=== PATIENT | female | born 1990 | race Caucasian/White ===

== ENCOUNTER 2019-02-20 11:46 | Outpatient (CLI) | payer OTHER ==
[~2019-02-20] VITALS: Ht 170.2 cm; Wt 82.3 kg
[2019-02-20 11:52] VITALS: BP 130/81; PULSE 82; TEMP 98.5
[2019-02-20] MEDS ORDERED: CALCIUM CARBON650 M2 (11:56)
[2019-02-20] MEDS ORDERED: OMEGA-3 1000 MG1 CAP (11:56)
[2019-02-20] MEDS ORDERED: VITAMIN B-625 MG (11:57)
[2019-02-20] MEDS ORDERED: PRENATAL MVI (11:57)
--- NOTE | 2019-02-20 12:05 | NUR ---
G1 at 40.4 weeks gestation to LDR3 with c/o her water breaking. She denies vaginal bleeding and reports good movement. Patient changed into gown and wedged left in bed. EFMs explained and applied. FHR 120 bpm and reactive. Irregular CTX per toco and patient reports. VSS. Amniotrace swab to vagina remains yellow. SVE 1/75/-2 with no fluid noted with exam. Plan of care reviewed with patient and spouse.
[2019-02-21] MEDS ORDERED: VITAMIND3 5000 PO (23:06)
== END 2019-02-20 12:35 | disposition home or self-care (01) ==
LOC: LDRO 11:46
DX: O42.92 Full-term premature rupture of membranes, unspecified as to length of time between rupture and onset of labor (principal); Z3A.40 40 weeks gestation of pregnancy

== ENCOUNTER 2019-02-21 22:39 | Inpatient (IN) | payer OTHER ==
[~2019-02-21] VITALS: Ht 170.2 cm; Wt 83.2 kg
[~2019-02-21 22:39] MED LIST: CALCIUM CARBON650 M2; OMEGA-3 1000 MG1 CAP; PRENATAL MVI; VITAMIN B-625 MG
--- NOTE | 2019-02-21 22:45 | NUR ---
Pt wheeled to LDR 5 with spouse. Clean gown on. EFM and TOCO expalined and applied. Pt states she has been having contractions every 4-5 minutes apart, lasting one minute for about an hour now. Pt denies LOF or vaginal bleeding. Reports good movement. SVE 3-4/80/-1, very posterior. Small amount of bloody show noted on exam glove. Vital signs and assessment completed. Plan of care explained to pt and who verbalize understanding. Call light within reach.
[2019-02-21 23:00] VITALS: BP 147/88; PULSE 74; TEMP 98.3
[2019-02-21] MEDS ORDERED: VITAMIND3 5000 PO (23:06)
[2019-02-21 23:30] VITALS: BP 141/90; PULSE 93
[2019-02-22] VITALS (17 sets, daily range): BP systolic 90–147; BP diastolic 40–92; PULSE 68–113; TEMP 97.6–98.7
--- NOTE | 2019-02-22 00:08 | NUR ---
SVE 5/90/-1 with more bloody show noted to exam glove. Plan of care explained to pt and who verbalize understanding. 0015: updated on pt and her status. See physican notification. 0020: Pt and updated on new orders and pt getting admitted. Consents signed. Hot blankets to arms for IV start. 0059: Pt large amount of emesis. Pt off monitors to clean up and luna gown. 0113: IV started and labs obtained via IV site. LR bolus infusing. 0137: Pt called out stating she was feeling more rectal pressure. Upon exam this RN noticed large amount of meconium fluid to pt's pad. Pt unaware of when water broke. SVE 8-9/100/0 with thick meconium noted. Pericare provided and pads changed. 0201: SVE C/+1. Education on pushing with contractions explained to pt and practice push completed with this RN. Pt moves vertex well. 0203: requested at hospital. Seee physican notifcation. 0222: at bedside for delivery. Pt assisted into footplates and begina pushing with provider. 0225: Spontaneous vaginal delivery of viable female infant by . to mothers chest where mouth and nares suctioned by nursery RN. Cord clamped X2 and cut by FOB. Care of assumed by DEAN Moore. 0231: Manually extracted placenta delivered by at this time. Pitocin started at 333mus/hr per protocol. Fundal message completed with uterine atony noted. 0235: IM methergine administered in left upper thigh. Lidocaine administered and second degree and right labial laceration repaired by . Pericare provided, pads changed and ice pack applied. Pt repositioned in bed. Plan of care and safety precautions explained to pt and who verbalize understanding. Call light within reach. See doctor dications.
[2019-02-22 02:03] LABS: BASO % 0.2 % (0.0-2.0); EOS % 0.1 % (0-4.0); GRAN # 10.6 (1.4-6.5); GRAN % 83.2 % (42.2-75.2); HEMATOCRIT 37.8 % (37.0-47.0); HEMOGLOBIN 13.2 g/dl (12.5-16.0); LYMPH # 1.5 (1.2-3.4); LYMPH % 11.7 % (20.0-51.0); MEAN CELL VOLUME 90 fl (80.0-100.0); MEAN CORPUSCULAR HEMOGLOBIN 32 pg (27.0-31.0); MEAN CORPUSCULAR HGB CONC 35 g/dl (33.0-37.0); MEAN PLATELET VOLUME 12.9 fl (7.4-10.4); MONO # 0.5 (0.1-0.6); MONO % 4.2 % (1.7-9.3); PLATELET COUNT 118 K/mm3 (130-400); RED BLOOD COUNT 4.18 M/mm3 (4.10-5.30); REDCELL DISTRIBUTION WIDTH-CV 12.9 % (11.5-14.5)
[2019-02-23] MEDS ORDERED: MOTRIN 800800 MG/TAB PO (05:08)
[2019-02-23 09:00] VITALS: BP 113/74; PULSE 99; TEMP 98.1
--- NOTE | 2019-02-23 12:44 | NUR ---
Patient given discharge instructions. Denies questions or concerns. Given paperwork and leaves ambulatory with spouse and . Encouraged to call with questions or concerns.
== END 2019-02-23 12:45 | disposition home or self-care (01) | DRG 806 ==
LOC: LDRO 22:39 → LDR 02-22 00:19 → OB 02-22 16:00
PROVIDERS: Obstetrics & Gynecology; ADMIT Student in an Organized Health Care Education/Training Program
PROC: 10E0XZZ Delivery of Products of Conception, External Approach (ICD-10-PCS; principal; 2019-02-22)
PROC: 0KQM0ZZ Repair Perineum Muscle, Open Approach (ICD-10-PCS; 2019-02-22)
PROC: 10D17Z9 Manual Extraction of Products of Conception, Retained, Via Natural or Artificial Opening (ICD-10-PCS; 2019-02-22)
PROC: 0UQMXZZ Repair Vulva, External Approach (ICD-10-PCS; 2019-02-22)
DX: O70.1 Second degree perineal laceration during delivery (principal); O99.12 Other diseases of the blood and blood-forming organs and certain disorders involving the immune mechanism complicating childbirth; Z37.0 Single live birth; O72.1 Other immediate postpartum hemorrhage; D69.59 Other secondary thrombocytopenia; Z3A.40 40 weeks gestation of pregnancy; O77.0 Labor and delivery complicated by meconium in amniotic fluid
CPT/HCPCS: J0690; J2210; J2590; J7120

== ENCOUNTER → 2019-02-26 | Outpatient (CLI) | payer OTHER ==
[~2019-02-26] MED LIST changes: +MOTRIN 800800 MG/TAB PO; +VITAMIND3 5000 PO
--- NOTE | 2019-02-26 11:10 | NUR ---
Pt, Dia Chino, presents to walk-in clinic with 4 day old baby girl, Katiana Chino, with concerns she is not getting enough to eat since she had decreased stools, frequent feedins without acting satisfied, and not feeling milk supply increase. Katiana was born on [birth year] by and weighed 7#2.6oz (3250 gms). Discharge weight was 6#13oz (3105 gms). Today he weighs 6#3.8oz (2830 gms) which is a loss of 12%.
== END ==
LOC: OLC 10:06
DX: Z39.1 Encounter for care and examination of lactating mother (principal); Z71.89 Other specified counseling

== ENCOUNTER → 2019-03-01 | Outpatient (CLI) | payer OTHER ==
--- NOTE | 2019-03-01 15:08 | NUR ---
Pt, Dia Chino, presents for outpatient consult with seven day old baby girl, Katiana Chino, and her spouse, Bebo. This family was seen at the walk-in clinic three days ago and it was discovered that Vivian was 12% below weight. Vivian was born on [birth year] and weighed 7#2.6oz (3249 gms). Three days ago she weighed 6#3.8oz (2829 gms). They have been following the feeding pland discussed that day so Vivian now feeds 8x/day, is supplemented 1-1.5oz after , and pt is pumping 6-8 x/day. She collects 10-15ml. Today Vivian weighs 6#9.7oz (2998 gms) for a gain of 6.1oz in 3 days. She latches easily and nurses each breast about 15 minutes. Non-nutrative vs. nutrative nursing reviewed. After nursing Vivian had a gain of 1.3 oz (34gms). Pt agrees to try SNS since she is getting such a small amount of milk with pumping and to try to eliminate the extra work of bottle feeding and pumping. SNS tubing is easily placed as pt latches Katiana to breast again, SNS works well, spouse is observant and supportive of SNS. takes 12ml formula and additional 4gms weight gain after nursing with SNS. Total gain is 1.8oz (50 gms), only 12 is from supplment. Baby is spitty after feeding so did not supplement as much as she usually takes at this time. POC: Continue feeding 8x/day, supplement in same volumes via SNS or bottle. Pump if baby not nursing well. F/U: MondayMarch 06 with this LC at 1500. Pt and spouse verbalize understanding, questions invited and answered.
== END ==
LOC: LAC 12:42
DX: Z39.1 Encounter for care and examination of lactating mother (principal); Z71.89 Other specified counseling

== ENCOUNTER → 2019-04-16 | Outpatient (CLI) | payer OTHER ==
--- NOTE | 2019-04-16 11:56 | NUR ---
Dia Chino into outpatient clinic with 6 week old "Josh" for weight check and evaluation. Dia was born on [birth year] with a weight of 7# 2.6 oz (3249 g). Katiana was supplement for the first two weeks until she was back up to weight; however, she has been exclusively breastfed since approx 2 weeks of age. Dia reports diapers to be WNL, but was unclear how many times a day Dia is nursing per day as she often cluster feeds during evening hours. While in the clinic Katiana nursed bilaterally for approx 25 minutes total with a gain of 96 grams. Dia expressed concern that Katiana was not obtaining a deep latch. Suggestions offered on positioning and pinching breast to allow for a deeper latch. Audible swallows noted throughout feeding. encouraged Dia to watch feeding cues and to aim for atleast 8 feedings per day and to offer each breast per feeding. Dia states she has been taking supplements to help with milk supply and questioned when she could wean from the then. Suggestions offered on decresing amount and note if supply is negatively effected. POC: Continue to feed ad margie with at least 8 feedings per day, offering both breast with each feeding. Anticipate return to clinic for weight check.
== END ==
LOC: LAC 10:22
DX: Z39.1 Encounter for care and examination of lactating mother (principal); Z71.89 Other specified counseling

== ENCOUNTER → 2020-09-29 | Outpatient (CLI) | payer OTHER | LOC: COL.VAS 14:34 | DX: I80.299 Phlebitis and thrombophlebitis of other deep vessels of unspecified lower extremity (principal) ==

== ENCOUNTER 2022-05-25 09:16 | Outpatient (CLI) | payer OTHER ==
[~2022-05-25] VITALS: Ht 172.7 cm; Wt 86.8 kg
[~2022-05-25 09:16] MED LIST changes: +PREDNISONE20 MG PO
--- NOTE | 2022-05-25 09:30 | NUR ---
Pt arrived on unit ambulatory and with concerns for possible ROM. Pt reports "puddles with white stuff" on the bathroom floor last night around 11:30pm. Pt reports occasional contractions but nothing consistent, denies any vaginal bleeding and reports normal movement. EFM and toco monitor started. Vital signs WNL. SVE by this RN -2 with negative amniotrace.
[2022-05-25 10:00] VITALS: BP 131/84; PULSE 95
--- NOTE | 2022-05-25 12:45 | NUR ---
Options of discharge home with follow up in clinic tomorrow for an NST or stay today for an inductions were discussed with pt and at the bedside per Dr Fabian's request. Pt and both verbalized they would like to go home as long as Dr Fabian is ok with it and follow up in clinic. Discharge instructions and follow up care reviewed with pt and . Both verbalized an understanding, agreed with the plan and states no questions or concerns.
== END 2022-05-25 13:15 | disposition home or self-care (01) ==
LOC: LDRO 09:16
DX: O42.92 Full-term premature rupture of membranes, unspecified as to length of time between rupture and onset of labor (principal); Z3A.40 40 weeks gestation of pregnancy
CPT/HCPCS: J7120

== ENCOUNTER 2022-05-26 09:33 | Inpatient (IN) | payer OTHER ==
[2022-05-26] VITALS (37 sets, daily range): BP systolic 112–156; BP diastolic 58–98; PULSE 60–107; TEMP 97.7–98.4
[~2022-05-26] VITALS: Ht 172.8 cm; Wt 86.4 kg
[2022-05-26 10:34] LABS: BASO % 0.2 % (0.0-2.0); EOS % 0.3 % (0.0-4.0); GRAN % 79.9 % (42.2-75.2); HEMATOCRIT 41.4 % (37.0-47.0); HEMOGLOBIN 13.9 g/dl (12.5-16.0); LYMPH # 1.5 K/mm3 (1.2-3.4); LYMPH % 14.7 % (20.0-51.0); MEAN CELL VOLUME 95 fl (80.0-100.0); MEAN CORPUSCULAR HEMOGLOBIN 32 pg (27-31); MEAN CORPUSCULAR HGB CONC 34 g/dl (33.0-37.0); MEAN PLATELET VOLUME 11.6 fl (7.4-10.4); MONO # 0.4 K/mm3 (0.1-0.6); MONO % 3.7 % (1.7-9.3); PLATELET COUNT 105 K/mm3 (130-400); RED BLOOD COUNT 4.34 M/mm3 (4.10-5.30); REDCELL DISTRIBUTION WIDTH-CV 13.8 % (11.5-14.5)
--- NOTE | 2022-05-26 12:15 | NUR ---
0940 PT AMBULATORY TO UNIT WITH SPOUSE. PT IN ROOM, CHANGED INTO GOWN, AND PLACED ON EFM AND TOCO. PT DENIES LEAKING OF FLUID, IS FEELING BABY MOVE, AND THINKS SHE IS HAVING CONTRACTIONS IRREGULARLY. DENIES PAIN WITH CONTRACTIONS. NO VAGINAL BLEEDING. INITIAL CATEGORY 2 EFM TRACING, NO ACCELERATIONS NOTED, NO DECELERATIONS. MINIMAL VARIABILITY. WILL CONTINUE TO MONITOR.
--- NOTE | 2022-05-26 13:22 | NUR ---
AT BEDSIDE, SVE 2-3/-3. 1322:AROM WITH CLEAR FLUID PER . LARGE AMOUNT OF CLEAR FLUID NOTED. PT TOLERATED PROCEDURE WELL. AFEBRILE,VITAL SIGNS STABLE. REASSURING STRIP AT THIS TIME.
--- NOTE | 2022-05-26 14:44 | NUR ---
SVE UNCHANGED FROM PREVIOUS 1 HR AGO, 2-/-3. NO RESPONSE ON EFM TRACING WITH SCALP STIM. MINIMAL VARIBILITY. PIT REMAINS AT 12MU PER ORDER. SEE PHYSICIAN NOTIFICATION.
--- NOTE | 2022-05-26 15:55 | NUR ---
TOCO TRACING TACHYSYSTOLE, MINIMAL VARIABILITY. PIT @ 14MU PER ORDER. LR BOLUS INFUSING. PT PLACED IN LL POSITION. NOTIFIED. SEE PHYS NOTIFICATION FOR FURTHER DETAILS.
--- NOTE | 2022-05-26 15:58 | NUR ---
PITOCIN OFF AT THIS TIME PER HA CURRIE.
--- NOTE | 2022-05-26 16:23 | NUR ---
1623: AT BEDSIDE DISCUSSING POC AND CONCERNS WITH EFM/TOCO TRACING. EDUCATED ON PHYSICIAN RECOMMENDATION TO PROCEED WITH CSECTION. PT AGREEABLE BUT ANXIOUS WITH POC. ALL QUESTIONS ANSWERED. ALL STAFF NOTIFIED. ALL CONSENTS SIGNED. WILL PROCEED WITH CSECTION PER PROTOCOL.
--- NOTE | 2022-05-26 20:30 | NUR ---
pericare performed, clean gown on. Pt able to move feet, not able to move legs or bend knees yet. Infant to NSY.
[2022-05-27 00:30] VITALS: BP 124/74; PULSE 86; TEMP 98.8
[2022-05-27 03:15] VITALS: BP 124/74; PULSE 86; TEMP 98.3
[2022-05-27 07:00] VITALS: BP 123/69; PULSE 73; TEMP 98
[2022-05-27] MEDS ORDERED: IBU800 M1 PO (08:19)
[2022-05-27] MEDS ORDERED: PERCOCET 325 MG1 TA2 PO (08:20)
[2022-05-27 08:24] LABS: BASO % 0.1 % (0.0-2.0); GRAN # 13.7 K/mm3 (1.4-6.5); LYMPH # 2.1 K/mm3 (1.2-3.4); LYMPH % 12.4 % (20.0-51.0); MEAN CELL VOLUME 94 fl (80.0-100.0); MEAN CORPUSCULAR HEMOGLOBIN 32 pg (27-31); MEAN CORPUSCULAR HGB CONC 34 g/dl (33.0-37.0); MEAN PLATELET VOLUME 11.6 fl (7.4-10.4); MONO # 0.8 K/mm3 (0.1-0.6); MONO % 4.7 % (1.7-9.3); PLATELET COUNT 122 K/mm3 (130-400); RED BLOOD COUNT 3.75 M/mm3 (4.10-5.30); REDCELL DISTRIBUTION WIDTH-CV 13.8 % (11.5-14.5)
[2022-05-27 08:25] LABS: HEMATOCRIT 35.2 % (37.0-47.0)
--- NOTE | 2022-05-27 09:02 | NUR ---
Initial visit; Parents thanked [facility] for offering congratulations and God's blessings for the of their son. [facility] thanked family for choosing our hospital .
[2022-05-27 11:00] VITALS: BP 117/73; PULSE 86; TEMP 97.9
[2022-05-27 15:29] VITALS: BP 116/67; PULSE 70; TEMP 97.5
[2022-05-27 21:00] VITALS: BP 122/79; PULSE 66; TEMP 97.9
--- NOTE | 2022-05-27 23:15 | NUR ---
THIS RN WAS CALLED TO THE LABOR ROOM TO ASSIST WITH THE BABY WHO WAS ABOUT 30 MIN OF AGE. PT WAS ON THE WARMER- BLOW BY WAS BEING GIVEN- PT WAS DUSKY AND HAD CIRCUMORAL CYANOSIS. THE [employer] TECHNICAL MANAGER MASK WAS PLACED DIRECTLY ON THE BABY'S FACE TO RAISE THE SAT. FROM 78% TO 89%- THE BABY IS HYPOTONIC AND NOT VERY ACTIVE DISPITE STIMULATION. MOM ASKS ME IF I THINK THE BABY HAS TRISOMY/DOWNS SYDROME- I SAID I HAVE NOTICED SOME PHYSICAL CHARACTERISTICS THAT ARE ASSOCIATED WITH THAT CONDITION. MOM IS VERY EMOTIONAL. BABY'S O2 SAT. DOES NOT GET ABOVE 89% - SUPPORT GIVEN TO THE MOM AND DAD- BABY IS BROUGHT TO THE NURSERY FOR FURTHER OBSERVATION.
[2022-05-28 01:00] VITALS: BP 120/70; PULSE 68; TEMP 98
[2022-05-28 07:00] VITALS: BP 123/86; PULSE 78; TEMP 97.6
[2022-05-28 11:09] VITALS: BP 126/84; PULSE 77; TEMP 97.6
--- NOTE | 2022-05-28 16:51 | NUR ---
PATIENT GIVEN DISCHARGE INSTRUCTIONS, VERBALIZED UNDERSTANDING. PAPERWORK SIGNED. BABY GINA SECURED IN CAR SEAT. 1980 PATIENT AMBULATED OFF UNIT ALONG WITH AND BABY IN CAR SEAT. SNAPPED INTO BASED. MOM ASSISTED INTO CAR.
== END 2022-05-28 16:38 | disposition home or self-care (01) | DRG 787 ==
LOC: LDR 09:33 → OB 09:34
PROVIDERS: ADMIT Student in an Organized Health Care Education/Training Program
PROC: 10D00Z1 Extraction of Products of Conception, Low, Open Approach (ICD-10-PCS; principal; 2022-05-26)
PROC: 10907ZC Drainage of Amniotic Fluid, Therapeutic from Products of Conception, Via Natural or Artificial Opening (ICD-10-PCS; 2022-05-26)
PROC: 3E033VJ Introduction of Other Hormone into Peripheral Vein, Percutaneous Approach (ICD-10-PCS; 2022-05-26)
DX: O76 Abnormality in fetal heart rate and rhythm complicating labor and delivery (principal); O99.12 Other diseases of the blood and blood-forming organs and certain disorders involving the immune mechanism complicating childbirth; D69.6 Thrombocytopenia, unspecified; O48.0 Post-term pregnancy; Z37.0 Single live birth; O87.4 Varicose veins of lower extremity in the puerperium; I83.90 Asymptomatic varicose veins of unspecified lower extremity; O99.824 Streptococcus B carrier state complicating childbirth; O69.81X0 Labor and delivery complicated by cord around neck, without compression, not applicable or unspecified; Z3A.40 40 weeks gestation of pregnancy
CPT/HCPCS: J0690; J1100; J1720; J2370; J2405; J2540; J2590; J7120; J7512

== ENCOUNTER → 2022-07-12 | Outpatient (CLI) | payer OTHER ==
[~2022-07-12] MED LIST changes: +IBU800 M1 PO; +PERCOCET 325 MG1 TA2 PO
--- NOTE | 2022-07-12 15:07 | NUR ---
Pt, Dia Lulú, presents to walk-in clinic with 7 week old baby boy, Samuel Chino, for a breasttfeeding evaluation and concerns about an area on the right breast that is suspicious for mastitis and thrush to the right nipple. Samuel was born by repeat c/section on [birth year] and weighed 8# 11.3oz (3950 gms). Weight gain has been WNL. Pt states she had mastitis in the right breast at 3 weeks PP, she was treated with oral antibx. Pt feels she had a yeast infection on the right nipple in the last 7-10 days and was treated with 2 doses of fluconazole. Today pt has redness to the same area of the right breast as she did at 3 weeks PP. She denies fever chills or body aches. Some fullness or firmness is noted in this area with palpation. Pt desires to hold off on antibx treatment at this time, will monitor for worsening sx over the next 24 hours. If sx worsen she will contact her OB provider. Meanwhile pt will increase rest, fluids, and . She will take acidophilus, vitamin C and lecithin to try aid in risk reduction for masitis. She will also use a vinegar in water solution after and an antifungal cream 3-4x/day to help manage sx of yeast to the right nipple. Pt will follow up with OB provider if sx worsen in the next 24 hours and by phone or at clinic as needed. Questions invited and answered. Samuel nursed here, without pain or difficulty and had a weight gain of 3.3oz.
== END ==
LOC: LAC 12:58
DX: Z39.1 Encounter for care and examination of lactating mother (principal); Z71.89 Other specified counseling

== ENCOUNTER 2024-05-11 10:15 | Inpatient (IN) | payer OTHER ==
[2024-05-11] VITALS (22 sets, daily range): BP systolic 101–147; BP diastolic 59–79; PULSE 64–97; TEMP 97.6–98.1
[~2024-05-11] VITALS: Ht 170.2 cm; Wt 89.5 kg
--- NOTE | 2024-05-11 10:25 | NUR ---
PT WHEELED TO UNIT WIHT . REPORTS CTX Q4 MINUTES, NO LOF, POSITIVE MOVEMENT.DESIRES TOLAC. SVE 6-7/90/0. GREEN MUCUS DISCHARGE NOTED ON EXAM, SWABBED WITH AMNITRACE, NEGATIVE. DR. TAMAYO NOTIFIED WITH ADMIT ORDERS.
[2024-05-11] MEDS ORDERED: LR 1,000 ML IV SCH (10:45)
[2024-05-11] MEDS ORDERED: LR & Oxytocin 500 ML IV SCH (10:45)
[2024-05-11 11:25] LABS: BASO % 0.2 % (0.0-2.0); EOS % 0.2 % (0.0-4.0); GRAN # 6.5 K/mm3 (1.4-6.5); HEMATOCRIT 43.2 % (37.0-47.0); HEMOGLOBIN 14.3 g/dl (12.5-16.0); LYMPH # 1.6 K/mm3 (1.2-3.4); LYMPH % 18.5 % (20.0-51.0); MEAN CELL VOLUME 95 fl (80.0-100.0); MEAN CORPUSCULAR HEMOGLOBIN 32 pg (27-31); MEAN CORPUSCULAR HGB CONC 33 g/dl (33.0-37.0); MONO # 0.4 K/mm3 (0.1-0.6); MONO % 4.7 % (1.7-9.3); PLATELET COUNT 122 K/mm3 (130-400); RED BLOOD COUNT 4.54 M/mm3 (4.10-5.30); REDCELL DISTRIBUTION WIDTH-CV 13.2 % (11.5-14.5)
--- NOTE | 2024-05-11 12:00 | NUR ---
1200Bedside report form Brittnee MORAN. Pt in bathroom. Requesting epidural. Mary MORALESRA on unit and aware. 1206Pt assisted to edge of bed. Epidural placed and single shot at this time by Mary Kumar [employer] FIELD COORDINATOR. FHR tracing intermittently due to maternal position. RN remains at bedside adj EFM. 1212Pt wedge left. EFM adj and tracing well. Plan of care and safety precautions reviewed with pt who verbalizes understanding. Pt reports intermittent pressure with ctx. Declines SVE at this time.
[2024-05-11] MEDS ORDERED: diphenhydrAMINE 50 MG/ML 1 ML VIAL IV PRN (12:30)
[2024-05-11] MEDS ORDERED: Ondansetron 4 MG/2 ML VIAL IV PRN (12:30)
[2024-05-11] MEDS ORDERED: Naloxone 0.4 MG/ML VIAL IV PRN ×2 (12:30→14:15)
[2024-05-11] MEDS ORDERED: diphenhydrAMINE 25 MG CAP PO PRN (12:30)
[2024-05-11] MEDS ORDERED: ePHEDrine 50 MG/10 ML VIAL IV PRN (12:30)
--- NOTE | 2024-05-11 13:10 | NUR ---
1310Dr. Roles at bedside and reviews plan of care with pt. KINGSLEY /0. AROM for meconium stained fluid. Catheter placed. Alana care provided. Pt wedge right with peanut ball in placed. Instructed to call with any increased rectal pressure or urge to push. Call light within reach.
--- NOTE | 2024-05-11 13:36 | NUR ---
1336Patient calls rn to bedside and reports increased rectal pressure and urge to push. SVE 10/+2. Dr. Pastor at nurses station and notified. 1340Dr. Pastor at bedside. Catheter removed and pushing reviewed with pt. 1345Patient begins pushing with Dr. Pastor and nursing staff at bedside. 1356Spontaneous vaginal delivery of viable female . To mother's chest where dried and stimulated by nursery RN. 1357Cord clamped x2 and cut by father of . To warmer where care of assumed by Silvia Awad RN. 1406Intact delivery of placenta. Pitocin started at 333ml/hr per protocol. First degree laceration repaired by Dr. Pastor. Fundus firm, midline, bleeding scant. Alana care provided and ice pack to perineum. Plan of care and safety precautions reviewed. Denies questions or needs at this time. Call light within reach.
[2024-05-11] MEDS ORDERED: Acetaminophen 500 MG TAB PO SCH (14:15)
[2024-05-11] MEDS ORDERED: Ibuprofen 800 MG TAB PO SCH (14:15)
[2024-05-11] MEDS ORDERED: oxyCODONE 5 MG TAB PO PRN (14:15)
[2024-05-11] MEDS ORDERED: Witch Hazel 50% Pads Bulk TUB TP PRN (14:15)
[2024-05-11] MEDS ORDERED: Loratadine 10 MG TAB PO PRN (14:15)
[2024-05-11] MEDS ORDERED: Mag/Al Hydrox/Simeth Susp 30 ML CUP PO PRN (14:15)
[2024-05-11] MEDS ORDERED: Phenylephrine/Mineral Oil/Petrolatum 57 GM TUBE RC PRN (14:15)
[2024-05-11] MEDS ORDERED: Measles/Mumps/Rubella Virus Vaccine Live w Diluent 0.5 ML VIAL SQ SCH (14:15)
[2024-05-11] MEDS ORDERED: Magnes Hydrox (MOM) 80 MG/ML 30 ML CUP PO PRN (14:15)
--- NOTE | 2024-05-11 16:00 | NUR ---
1600Fundus firm, midline, and bleeding minimal. Assisted to sit on edge of bed. Denies any lightheadedness or dizziness. Ambulatory to bathroom with SBA. Voids without difficulty. Alana care provided, pads changed, and ice pack to perineum, clean gown on. Pt slightly unstead after void; to room 214 via wheelchair. Instructed to call for assistance to bathroom with next void. Oriented to room and plan of care. Call light within reach.
[2024-05-11] MEDS ORDERED: Sennosides/Docusate 8.6-50 MG TAB PO SCH (17:00)
[2024-05-11] MEDS ORDERED: traZODone 50 MG TAB PO PRN (21:00)
[2024-05-12 00:16] VITALS: BP 120/72; PULSE 72; TEMP 98.1
[2024-05-12 04:30] VITALS: BP 133/85; PULSE 69; TEMP 98
[2024-05-12 07:45] VITALS: BP 116/72; PULSE 65; TEMP 97.5
[2024-05-12] MEDS ORDERED: Prenatal Vitamins/Iron/FA TAB PO SCH (09:00)
--- NOTE | 2024-05-12 16:20 | NUR ---
PT AND INFANT DISCHARGE ORDERS INPUT PER , OB ON-CALL, AND , PEDIATRIC ON-CALL. PT VERBALLY UNDERSTANDING OF DISCHARGE AND SIGNED DISCHARGE PAPERWORK. CHECKED SAFELY IN CAR SEAT CARRIER AND FAMILY SAFELY WALKED OFF UNIT TO CAR TO GO HOME.
== END 2024-05-12 16:20 | disposition home or self-care (01) | DRG 806 ==
LOC: LDRO 10:15 → LDR 10:45 → OB 16:20
PROVIDERS: Obstetrics & Gynecology; ADMIT Student in an Organized Health Care Education/Training Program
PROC: 10E0XZZ Delivery of Products of Conception, External Approach (ICD-10-PCS; principal; 2024-05-11)
PROC: 0HQ9XZZ Repair Perineum Skin, External Approach (ICD-10-PCS; 2024-05-11)
DX: O34.211 Maternal care for low transverse scar from previous cesarean delivery (principal); O99.12 Other diseases of the blood and blood-forming organs and certain disorders involving the immune mechanism complicating childbirth; Z37.0 Single live birth; Z3A.40 40 weeks gestation of pregnancy; D69.6 Thrombocytopenia, unspecified; O77.0 Labor and delivery complicated by meconium in amniotic fluid
CPT/HCPCS: J0665; J2590; J2795; J7120